=== PATIENT | female | born 1930 | race Caucasian/White ===

== ENCOUNTER 2019-02-01 10:10 | Outpatient (CLI) | payer MEDICARE, MEDICAID | END 2019-02-01 20:39 | disposition home or self-care (01) | LOC: SRD 10:10 | PROVIDERS: ATTEND Internal Medicine | DX: M47.816 Spondylosis without myelopathy or radiculopathy, lumbar region (principal); I70.8 Atherosclerosis of other arteries | CPT/HCPCS: 72110 ==